=== PATIENT | female | born 1945 | race Caucasian/White ===

== ENCOUNTER 2017-02-13 10:12 | Inpatient (IN) | payer OTHER, MEDICARE ==
[2017-01-29 10:03] LABS: % IMMATURE GRANULYOCYTES 0.2 % (0.0-1.1); ABSOLUTE IMMATURE GRANULOCYTES 0.01 10^3/uL (0.00-0.10); ADD DIFF? NO; ADD MORPH? NO; ADD SCAN? NO; ATYPICAL LYMPHOCYTE FLAG 10 (0-99); FRAGMENT RBC FLAG 0 (0-99); HEMATOCRIT 40.1 % (38.0-47.0); HEMOGLOBIN 13.5 g/dL (12.6-16.3); LEFT SHIFT FLG 0 (0-99); LIPEMIA HEMOLYSIS FLAG 80 (0-99); MEAN CELL HEMOGLOBIN 32.3 pg (27.9-34.1); MEAN CELL HEMOGLOBIN CONCENTR. 33.7 g/dL (32.4-36.7); MEAN CELL VOLUME 95.9 fL (81.5-99.8); MEAN PLATELET VOLUME 10.1 fL (8.7-11.7); PLATELET CLUMPS FLAG 0 (0-99); PLATELET COUNT 258 10^3/uL (150-400); RED BLOOD CELL COUNT 4.18 10^6/uL (4.18-5.33); RED CELL DISTRIBUTION WIDTH 13.4 % (11.5-15.2)
[~2017-02-13 10:12] MED LIST: ACETAMINOPHEN 325 MG TAB PO ONE; CEFAZOLIN 2 GM/DEXTR 100 ML IV ONE; CHLORHEXIDINE GLUC HIBICLENS 118 ML BTL TP ONE; DEXAMETHASONE 4 MG/ML VIAL IVP ONE; FAMOTIDINE 20 MG TAB PO ONE; ROPI/epiNEPH/KETOROLAC JOINT COCKTAIL IU ONE; TRANEXAMIC ACID 3,000 MG in NS 50 ML IRR ONE; TRANEXAMIC ACID 3,000 MG/50 ML BAG IRR ONE; VANCOMYCIN 1 GM VIAL ONE
[2017-02-13] MEDS ORDERED: ACETAMINOPHEN 325 MG TAB ONE (11:11)
[2017-02-13] MEDS ORDERED: DEXAMETHASONE 4 MG/ML VIAL ONE ×2 (11:11→12:36)
[2017-02-13] MEDS ORDERED: FAMOTIDINE 20 MG TAB ONE (11:11)
[2017-02-13] MEDS ORDERED: CEFAZOLIN 2 GM/DEXTROSE/100 ML BAG IV ONE (11:11)
[2017-02-13] MEDS ORDERED: LIDOCAINE 1% 2 ML INJ ONE (11:23)
[2017-02-13] MEDS ORDERED: fentaNYL 100 MCG/2 ML INJ ONE (12:07)
[2017-02-13] MEDS ORDERED: PROPOFOL/EMULSION 500 MG/50 ML BOTTLE IV ONE (12:07)
[2017-02-13] MEDS ORDERED: epHEDrine SULFATE 10 MG/ML SYR ONE (12:35)
[2017-02-13] MEDS ORDERED: ONDANSETRON 4 MG/2 ML VIAL ONE (12:36)
[2017-02-13] MEDS ORDERED: ROPIVACAINE HCL 150 MG/30 ML INJ ONE (12:48)
[2017-02-13] MEDS ORDERED: GLYCOPYRROLATE 0.2 MG/1 ML VIAL ONE (13:00)
[2017-02-13] MEDS ORDERED: PHENYLEPHRINE HCL 100 MCG/ML SYR ONE (13:10)
[2017-02-13] MEDS ORDERED: PROPOFOL 200 MG/20 ML VIAL ONE (13:15)
[2017-02-13] MEDS ORDERED: METOCLOPRAMIDE 10 MG/2 ML VIAL IVP PRN (13:33)
[2017-02-13] MEDS ORDERED: PROMETHAZINE HCL 25 MG SUPPR PR PRN (13:33)
[2017-02-13] MEDS ORDERED: POLYETHYLENE GLYCOL 3350 17 GM PKT PO PRN (13:33)
[2017-02-13] MEDS ORDERED: ONDANSETRON 4 MG/2 ML VIAL IVP PRN (13:33)
[2017-02-13] MEDS ORDERED: TEMAZEPAM 15 MG CAP PO PRN (13:33)
[2017-02-13] MEDS ORDERED: BISACODYL 10 MG SUPP PR PRN (13:33)
[2017-02-13] MEDS ORDERED: PHARMACY PAIN CONSULT 1 EA MISC PRN (13:33)
[2017-02-13] MEDS ORDERED: DIPHENOXYLATE/ATROPINE LOMOTIL 1 TAB PO PRN (13:33)
[2017-02-13] MEDS ORDERED: diphenhydrAMINE 25 MG CAP PO PRN (13:33)
[2017-02-13] MEDS ORDERED: MAGNESIUM HYDROXIDE 30 ML UDCUP PO PRN (13:33)
[2017-02-13] MEDS ORDERED: PROMETHAZINE HCL 25 MG/ML INJ IVP PRN (13:33)
[2017-02-13] MEDS ORDERED: LACTULOSE 20 GM/30 ML UDCUP PO PRN (13:33)
--- NOTE | 2017-02-13 13:33 | POSTOPPROG ---
Post Op Note Date of Operation: 02/13/17 Surgeon: Rona Rm Lead Slot Technician: jelani rm Anesthesiologist: dr. hernandez Anesthesia: Spinal, Other (Specify) (adductor canal block) Pre-op Diagnosis: left knee OA Post-op Diagnosis: same Indication: left knee pain due to OA that failed conservative measure Procedure: L TKA Findings: severe knee OA Inf/Abcess present in the surg proc area at time of surgery?: No EBL: 50-100
[2017-02-13] MEDS ORDERED: LR 1,000 ML IV SCH (14:00)
[2017-02-13] MEDS: ACETAMINOPHEN 325 MG TAB PO SCH (17:08)
[2017-02-13] MEDS: CYCLOBENZAPRINE 10 MG TAB PO PRN (17:08)
[2017-02-13] MEDS: ceFAZolin 2 GM/DEXTROSE 100 ML IV SCH (17:09)
--- NOTE | 2017-02-13 17:17 | GOP ---
[f rep st] OPERATIVE REPORT DATE OF OPERATION: 02/13/2017 SURGEON: David Herrera MD PROFILE STITCHING MACHINE OPERATOR: Katrina Herrera PA-C. ANESTHESIA: Spinal. PREOPERATIVE DIAGNOSIS: Left knee osteoarthritis. POSTOPERATIVE DIAGNOSIS: Left knee osteoarthritis. PROCEDURE PERFORMED: Left total knee arthroplasty. FINDINGS: ESTIMATED BLOOD LOSS: 30 cc. INDICATIONS: This is a 71-year-old female with severe and progressive pain and deformity of the lef t knee unresponsive to conservative care. Risks and benefits of the surgical intervention were expl ained in detail. DESCRIPTION OF PROCEDURE: The patient was brought to the operative room and placed on the table in the supine position. Spinal anesthesia was induced without difficulty. A pneumatic tourniquet was applied about the left proximal thigh, and the leg was prepped and draped in a sterile fashion. The leg vidales was applied. After exsanguination by elevation the tourniquet was inflated to 250 mm of mercury. Incision was made anterior medial from the tibial tuberosity to a point 2 cm proximal to the superio r pole of the patella. Medial parapatellar arthrotomy was carried out from the superior pole of the patella and posteriorly in line with the fibers of the Type 2 VMO. The medial collateral ligament was elevated and the infrapatellar fat pad was resected. The patella was everted and the articular surface was excised. A 35 mm patellar button was placed. The distal femoral guide hole was drilled and the 6-degree alignment kane was placed. An 8 mm distal femoral cut was made without difficulty. Attention was turned to the tibia and a standard 9 mm cut based on the lateral tibial condyle was pe rformed. The tibial articular surface was excised without difficulty. Attention was turned back to the femur and a size 4 Triathlon femoral cutting block was positioned. Anterior, posterior, and chamfer cuts were made, followed by the intercondylar box cut. The knee was extended and the remnants of the medial and lateral meniscus were excised. The posteri or capsule was injected with ropivacaine, epinephrine and Toradol. A size 4 MIS mini-keel tibial tr ay was positioned. Trial reduction was then carried out. There was excellent range of motion, alig nment, and stability using the 13 mm polyethylene. All trials were then removed. The joint was thoroughly irrigated and carefully dried. Two packages of cement and 2 grams of vancomycin were mixed in the vacuum mixer and placed on the fixation surfa cate of all surfaces of the components. The components were implanted and all excess cement was thor oughly removed. The permanent 13 mm polyethylene was placed without difficulty. The tourniquet was deflated and all bleeders were coagulated. The wound was thoroughly irrigated an d closed using interrupted sutures of 2-0 Vicryl for the joint capsule. The subcu was closed with 3 -0 Vicryl and the skin with 4-0 Monocryl. Dermabond and Steri-Strips were applied followed by a com pressive dressing. The patient was then moved from the operating room to the recovery room in good condition, having tolerated the procedure well. PATHOLOGY: Severe medial and patellofemoral osteoarthritis. /[id number]/MODL
[2017-02-13] MEDS: ONDANSETRON DISINTEGRATING 4 MG TAB PO PRN ×2 (18:14→21:32)
[2017-02-13] MEDS: oxyCODONE IR 5 MG TAB PO PRN ×2 (18:35→21:58)
[2017-02-13] MEDS: ASPIRIN 325 MG TAB PO SCH (20:27)
[2017-02-13] MEDS: FAMOTIDINE 20 MG TAB PO SCH (20:27)
[2017-02-13] MEDS: SENNOSIDES/DOCUSATE SODIUM TAB PO SCH (20:27)
[2017-02-14] MEDS: ACETAMINOPHEN 325 MG TAB PO SCH ×3 (00:56→10:41)
[2017-02-14] MEDS: oxyCODONE IR 5 MG TAB PO PRN ×4 (00:57→10:41)
[2017-02-14] MEDS: ceFAZolin 2 GM/DEXTROSE 100 ML IV SCH (00:58)
[2017-02-14] MEDS: ONDANSETRON DISINTEGRATING 4 MG TAB PO PRN (03:32)
[2017-02-14 04:52] LABS: HEMATOCRIT 33.6 % (38.0-47.0); HEMOGLOBIN 11.4 g/dL (12.6-16.3)
[2017-02-14 07:33] VITALS: BP 121/62; PULSE 54; RESP 14; TEMP 97.4; O2SAT 96
[2017-02-14] MEDS: SENNOSIDES/DOCUSATE SODIUM TAB PO SCH (08:38)
[2017-02-14] MEDS: ASPIRIN 325 MG TAB PO SCH (08:38)
[2017-02-14] MEDS: CYCLOBENZAPRINE 10 MG TAB PO PRN (08:38)
[2017-02-14] MEDS: FAMOTIDINE 20 MG TAB PO SCH (08:38)
== END 2017-02-14 12:12 | disposition home or self-care (01) | DRG 470 ==
LOC: F3N 10:12
PROVIDERS: ADMIT Orthopaedic Surgery; ATTEND Orthopaedic Surgery
PROC: 0SRD0J9 Replacement of Left Knee Joint with Synthetic Substitute, Cemented, Open Approach (ICD-10-PCS; principal; 2017-02-13 12:00)
DX: M17.12 Unilateral primary osteoarthritis, left knee (principal)
CPT/HCPCS: 97110-GP; 97116-GP; 97161-GP; 97165-GO; 97530-GP; C1713; G8978-GP-CJ; G8979-GP-CI; G8980-GP-CI; G8987-GO-CI; G8988-GO-CI; G8989-GO-CI; J0171; J0690; J1100; J1885; J2370; J2405; J2704; J2795; J3010; J3370

== ENCOUNTER → 2017-07-29 | Outpatient (CLI) | payer OTHER, MEDICARE | LOC: FIMAGING 09:14 | PROVIDERS: ATTEND Family Medicine | DX: Z12.31 Encounter for screening mammogram for malignant neoplasm of breast (principal) | CPT/HCPCS: G0202 ==

== ENCOUNTER → 2018-01-15 | Outpatient (CLI) | payer OTHER, MEDICARE | LOC: FIMAGING 10:52 | PROVIDERS: ATTEND Orthopaedic Surgery | DX: M17.11 Unilateral primary osteoarthritis, right knee (principal); M25.461 Effusion, right knee ==

== ENCOUNTER 2018-01-21 07:11 | Observation (INO) | payer OTHER, MEDICARE ==
[~2018-01-21 07:11] MED LIST changes: -ACETAMINOPHEN 325 MG TAB PO ONE; -CEFAZOLIN 2 GM/DEXTR 100 ML IV ONE; -CHLORHEXIDINE GLUC HIBICLENS 118 ML BTL TP ONE; -DEXAMETHASONE 4 MG/ML VIAL IVP ONE; -FAMOTIDINE 20 MG TAB PO ONE; -ROPI/epiNEPH/KETOROLAC JOINT COCKTAIL IU ONE; +ROPIVACAINE 0.2% 80 MG, EPINEPHrine 0.2 MG, KETOROLAC TROMETHAMINE 30 MG in SYRINGE 0 ML IU ONE; +TRANEXAMIC ACID 3,000 MG in NS (SYRINGE) 50 ML IRR ONE; -TRANEXAMIC ACID 3,000 MG in NS 50 ML IRR ONE; -TRANEXAMIC ACID 3,000 MG/50 ML BAG IRR ONE; -VANCOMYCIN 1 GM VIAL ONE
--- NOTE | 2018-01-21 07:12 | PDHPUP ---
History & Physical Update H&P update statement: This history and physical update is based on an assessment of the patient which was completed after admission or registration (within 24 hours), but prior to the surgery/procedure. H&P update: H&P reviewed & patient examined, no change in patient's condition since H&P completed
[2018-01-21] MEDS ORDERED: FAMOTIDINE 20 MG TAB PO ONE (07:39)
[2018-01-21] MEDS ORDERED: ceFAZolin 2 GM/SWFI 2 GM/20 ML SYR IVP ONE (07:39)
[2018-01-21] MEDS ORDERED: ACETAMINOPHEN 325 MG TAB PO ONE (07:39)
[2018-01-21] MEDS ORDERED: DEXAMETHASONE 4 MG/ML VIAL IVP ONE (07:39)
[2018-01-21] MEDS ORDERED: LIDOCAINE 1% 2 ML INJ ID PRN (07:40)
[2018-01-21] MEDS ORDERED: LR 1,000 ML IV ONE (07:40)
[2018-01-21] MEDS ORDERED: TRANEXAMIC ACID 3,000 MG/50 ML BAG IRR ONE (07:42)
--- NOTE | 2018-01-21 09:32 | PDANEPAE ---
ANE History of Present Illness R knee OA ANE Past Medical History - Cardiovascular History Hx Hypertension: No Hx Arrhythmias: No Hx Chest Pain: No Hx Coronary Artery / Peripheral Vascular Disease: No Hx CHF / Valvular Disease: No Hx Palpitations: No - Pulmonary History Hx COPD: No Hx Asthma/Reactive Airway Disease: No Hx Recent Upper Respiratory Infection: No Hx Oxygen in Use at Home: No Hx Sleep Apnea: No Sleep Apnea Screening Result - Last Documented: Negative Pulmonary History Comment: hx of sarcoidosis with pulm nodule 2007- seen at [facility] STABLE - Neurologic History Hx Cerebrovascular Accident: No Hx Seizures: No Hx Dementia: No - Endocrine History Hx Diabetes: No Hypothyroid: No Hyperthyroid: No Obesity: no - Renal History Hx Renal Disorders: No - Liver History Hx Hepatic Disorders: No - Neurological & Psychiatric Hx Hx Neurological and Psychiatric Disorders: No - Cancer History Hx Cancer: Yes Cancer History Comment: skin ca-BASAL CELL FACE - Congenital Disorder History Hx Congenital Disorders: No - GI History GERD: no Hx Gastrointestinal Disorders: Yes Gastrointestinal History Comment: hx partial colectomy - Other Health History Other Health History: OA -R KNEE;. wears glasses/ contacts. red head- sensitive skin - Chronic Pain History Chronic Pain: Yes (R KNEE) - Surgical History Prior Surgeries: L TOTAL KNEE 02-13-17. partial colectomy 1985. knee scopes bilaterally. tonsillectomy ANE Review of Systems Review of Systems: - Exercise capacity METS (RN): 5 METS - Systems Muscolosketal: Reports: joint pain ANE Patient History - Allergies Allergies/Adverse Reactions: No Known Allergies Allergy (Verified 01/07/18 12:00) - Home Medications Home Medications: C/E/Zn/Cu/OM3/DHA/EPA/LUT/ZEAX [Preservision Areds 2 Softgel] 1 each PO DAILY [Last Taken 2 Weeks Ago ~01/07/18] Herbals/Supplements -Info Only 1 ea PO DAILY 01/14/17 [Last Taken 2 Weeks Ago ~ 01/07/18] Calcium Carbonate [Oyster Shell Calcium 500 mg (*)] 1,000 mg PO DAILY 01/06/18 [ Last Taken 2 Weeks Ago ~01/07/18] - NPO status NPO Since - Liquids (Date): 01/21/18 NPO Since - Liquids (Time): 05:15 NPO Since - Solids (Date): 01/20/18 NPO Since - Solids (Time): 20:15 - Anes Hx Anes Hx: no prior problems - Smoking Hx Smoking Status: Never smoked Marijuana use: No - Alcohol Use Alcohol Use: Rarely - Family Anes Hx Family Anes Hx: neg - N/A Family Hx Anesthesia Complications: none ANE Labs/Vital Signs - Vital Signs Blood Pressure: 148/87 Heart Rate: 58 Respiratory Rate: 18 O2 Sat (%): 96 Height: 170.18 cm Weight: 61.235 kg ANE Physical Exam - Airway Neck exam: FROM Mallampati Score: Class 2 Mouth exam: normal dental/mouth exam - Pulmonary Pulmonary: no respiratory distress, no rales or rhonchi, clear to auscultation - Cardiovascular Cardiovascular: regular rate and rhythym, no murmur, rub, or gallop ANE Anesthesia Plan Anesthesia Plan: MAC, spinal Total IV Anesthesia: No
[2018-01-21] MEDS ORDERED: MIDAZOLAM 2 MG/2 ML VIAL IVP ONE (09:35)
[2018-01-21] MEDS ORDERED: fentaNYL 100 MCG/2 ML INJ ONE (09:45)
[2018-01-21] MEDS ORDERED: PROPOFOL/EMULSION 500 MG/50 ML BOTTLE IV ONE (09:45)
[2018-01-21] MEDS ORDERED: PROMETHAZINE HCL 25 MG/ML INJ IVP PRN ×2 (10:07→10:10)
[2018-01-21] MEDS ORDERED: PHENYLEPHRINE HCL 100 MCG/ML SYR IVP PRN (10:07)
[2018-01-21] MEDS ORDERED: ONDANSETRON 4 MG/2 ML VIAL IVP PRN ×2 (10:07→10:10)
[2018-01-21] MEDS ORDERED: LR 500 ML IV PRN (10:07)
[2018-01-21] MEDS ORDERED: HYDROCODONE/APAP 5/325 TAB PO PRN (10:07)
[2018-01-21] MEDS ORDERED: ACETAMINOPHEN 500 MG TAB PO PRN (10:07)
[2018-01-21] MEDS ORDERED: fentaNYL 100 MCG/2 ML INJ IVP PRN (10:07)
[2018-01-21] MEDS ORDERED: epHEDrine SULFATE 10 MG/ML SYR IVP PRN (10:07)
[2018-01-21] MEDS ORDERED: NALOXONE HCL 0.4 MG/ML INJ IVP PRN (10:07)
[2018-01-21] MEDS ORDERED: diphenhydrAMINE 25 MG CAP PO PRN (10:10)
[2018-01-21] MEDS ORDERED: POLYETHYLENE GLYCOL 3350 17 GM PKT PO PRN (10:10)
[2018-01-21] MEDS ORDERED: ONDANSETRON DISINTEGRATING 4 MG TAB PO PRN (10:10)
[2018-01-21] MEDS ORDERED: BISACODYL 10 MG SUPP PR PRN (10:10)
[2018-01-21] MEDS ORDERED: PROMETHAZINE HCL 25 MG SUPPR PR PRN (10:10)
[2018-01-21] MEDS ORDERED: DIPHENOXYLATE/ATROPINE LOMOTIL 1 TAB PO PRN (10:10)
[2018-01-21] MEDS ORDERED: LACTULOSE 20 GM/30 ML UDCUP PO PRN (10:10)
[2018-01-21] MEDS ORDERED: TEMAZEPAM 15 MG CAP PO PRN (10:10)
[2018-01-21] MEDS ORDERED: oxyCODONE IR 5 MG TAB PO PRN (10:10)
[2018-01-21] MEDS ORDERED: METOCLOPRAMIDE 10 MG/2 ML VIAL IVP PRN (10:10)
[2018-01-21] MEDS ORDERED: MAGNESIUM HYDROXIDE 30 ML UDCUP PO PRN (10:10)
[2018-01-21] MEDS ORDERED: LR 1,000 ML IV SCH (10:30)
[2018-01-21] MEDS ORDERED: VANCOMYCIN 1 GM VIAL ONE (10:38)
[2018-01-21] MEDS ORDERED: ROPIVACAINE HCL 150 MG/30 ML INJ ONE (10:50)
--- NOTE | 2018-01-21 11:12 | POSTOPPROG ---
Post Op Note Date of Operation: 01/21/18 Surgeon: Rona Rm [employer] Professor: jelani mr Anesthesiologist: dr. pinto Anesthesia: Spinal, Other (Specify) (adductor canal block) Pre-op Diagnosis: right knee OA Post-op Diagnosis: same Indication: knee pain Procedure: R TKA robot assisted and computer navigation Findings: R knee severe OA Inf/Abcess present in the surg proc area at time of surgery?: No EBL: 50-100
--- NOTE | 2018-01-21 12:50 | POSTANESTH ---
Post Anesthetic Evaluation Cardiovascular Status: Normal, Stable Respiratory Status: Normal, Stable Level of Consciousness/Mental Status: Can Participate in Eval Pain Control: Adequate, Prn Tx Ordered Nausea/Vomiting Control: Adequate, Prn Tx Ordered Complications Possibly Related to Anesthesia: None Noted
--- NOTE | 2018-01-21 13:51 | GOP ---
[f rep st] OPERATIVE REPORT DATE OF OPERATION: 01/21/2018 SURGEON: David Herrera MD BIOINFORMATICS ANALYST: RHYS Hurtado. ANESTHESIA: Spinal. PREOPERATIVE DIAGNOSIS: Right knee osteoarthrosis. POSTOPERATIVE DIAGNOSIS: Right knee osteoarthrosis. PROCEDURE PERFORMED: Right total knee replacement with computer navigation, robotic assist. FINDINGS: ESTIMATED BLOOD LOSS: 30 mL. INDICATIONS: The patient is a 72-year-old female with severe and progressive pain and deformity of t he right knee unresponsive to conservative care. The risks and benefits of surgical intervention wer e explained in detail. DESCRIPTION OF PROCEDURE: The patient was brought to the operative room and placed on the table in t he supine position. Spinal anesthesia was induced without difficulty. A pneumatic tourniquet was appl ied about the right proximal thigh, and the leg was prepped and draped in a sterile fashion. The leg vidales was applied. After exsanguination by elevation the tourniquet was inflated to 250 mmHg. Incision was made anterior medial from the tibial tuberosity to a point 2 cm proximal to the superior pole of the patella. Medial parapatellar arthrotomy was carried out from the superior pole of the p atella and posteriorly in line with the fibers of the Type II VMO. The medial collateral ligament was elevated and the infrapatellar fat pad was resected. The patella was everted and the articular surface was excised. A 35 mm patellar button was placed. Attention was turned first to the distal aspect of the femur. After exposure of the femur, 2 half pi ns were placed for fixation of the femoral array. In a similar fashion, 2 pins were placed anteromed ial on the tibia for fixation of the tibial array. External land marking and registration of the hip center was performed without difficulty. Internal femoral and tibial registration was carried out w ithout difficulty and the femoral and tibial checkpoints were placed and verified for accuracy. Attention was turned to the femur. The foot print for the size 4 femoral component was cut with the saw using the [employer] robotic system and verified for accuracy against the CT based plan. In a similar f ashion, the saw was used to cut the footprint for the size 4 tibial component using the [employer] system an d verified for accuracy against the CT based plan. The tibial articular surface was excised without d ifficulty, followed by the intercondylar box cut. The knee was extended and the remnants of the medial and lateral meniscus were excised. The posterior capsule was injected with ropivacaine, epinephrine and Toradol. A size 4 tibial tray was positioned . Trial reduction was then carried out. There was excellent range of motion, alignment, and stability using the 4 x 11 mm polyethylene. All trials were then removed. The joint was thoroughly irrigated and carefully dried. The 4 x 11 poly ethylene cemented components were implanted. The permanent 11 mm polyethylene X3 was placed without d ifficulty. The tourniquet was deflated and all bleeders were coagulated. The wound was thoroughly irrigated and closed using interrupted sutures of 2-0 Vicryl for the joint capsule. The subcu was closed with 3-0 V icryl and the skin with 4-0 Monocryl. Dermabond and Steri-Strips were applied followed by a compress satish dressing. The patient was then moved from the operating room to the recovery room in good conditi on, having tolerated the procedure well. PATHOLOGY: Medial and patellofemoral osteoarthritis. /[id number]/MODL
[2018-01-21] MEDS: HYDROCODONE/APAP 10/325 TAB PO PRN ×2 (16:26→21:55)
[2018-01-21] MEDS: ceFAZolin 2 GM/DEXTROSE 100 ML IV SCH (18:04)
[2018-01-21] MEDS: SENNOSIDES/DOCUSATE SODIUM TAB PO SCH (20:52)
[2018-01-21] MEDS: CYCLOBENZAPRINE 10 MG TAB PO PRN (20:52)
[2018-01-21] MEDS: FAMOTIDINE 20 MG TAB PO SCH (20:52)
[2018-01-21] MEDS: ASPIRIN 81 MG CHEWABLE TAB PO SCH (20:52)
[2018-01-22] MEDS: ceFAZolin 2 GM/DEXTROSE 100 ML IV SCH (01:57)
[2018-01-22] MEDS: HYDROCODONE/APAP 10/325 TAB PO PRN ×2 (04:13→10:12)
[2018-01-22 07:32] VITALS: BP 139/58
[2018-01-22] MEDS: ASPIRIN 81 MG CHEWABLE TAB PO SCH (07:33)
[2018-01-22] MEDS: SENNOSIDES/DOCUSATE SODIUM TAB PO SCH (07:33)
[2018-01-22] MEDS: FAMOTIDINE 20 MG TAB PO SCH (07:33)
[2018-01-22] MEDS: CYCLOBENZAPRINE 10 MG TAB PO PRN (07:38)
--- NOTE | 2018-01-22 08:48 | SOAPPROG ---
SOAP Progress Note Assessment/Plan: Assessment: Patient is doing well POD 1 s/p R TKA Pain management: pain is well controlled on oral pain meds. VTE ppx: recommend aspirin 81 mg BID for 4 weeks, cont VINITA and SCDs Anemia: level is expected initially postop. Asymptomatic. Continue to monitor D/c planning: d/c to home today pending release from PT muscle spasms: patient had relief with flexeril. will send script today from our EMR Plan: 01/22/18 08:46 01/22/18 08:47 Subjective: patient is doing well, eager for d/c. patient had relief with flexeril. Objective: Vital Signs Temp Pulse Resp BP Pulse Ox 36.7 C 57 L 16 139/58 H 97 01/22/18 07:31 01/22/18 07:31 01/22/18 07:31 01/22/18 07:31 01/22/18 07:31 Laboratory Results 01/22/18 05:10 01/21/18 01/22/18 01/23/18 05:59 05:59 05:59 Intake Total 2680 Output Total 1115 Balance 1565 RLE: incision dressing is clean and dry, NVI, +pf/df ICD10 Worksheet Patient Problems: Problems Problem Status Onset Primary localized osteoarthritis of right knee Acute
--- NOTE | 2018-01-22 13:42 | GDS ---
[f rep st] DISCHARGE SUMMARY ADMISSION DIAGNOSIS: Right knee osteoarthritis. DISCHARGE DIAGNOSIS: Right knee osteoarthritis. PROCEDURE: Right total knee arthroplasty. VTE PROPHYLAXIS: Recommend aspirin 81 mg twice a day for 4 weeks. BRIEF DESCRIPTION OF HOSPITAL STAY: Patient was admitted for an elective joint arthroplasty. The pa sam tolerated the procedure well and has passed physical therapy. The patient was given appropriat e antibiotic prophylaxis and venous thromboembolism prophylaxis. The patient's pain was well control led on oral pain medication, patient was holding down food, and had urinated. Decision was made to d ischarge the patient. The patient was given post-operative prescriptions pre-operatively. PLAN: To follow up as scheduled in Dr. Herrera's office on February 12 at 3:30. /[id number]/MODL
== END 2018-01-22 12:02 | disposition home or self-care (01) ==
LOC: F3N 07:11
PROVIDERS: ADMIT Orthopaedic Surgery; ATTEND Orthopaedic Surgery
DX: M17.11 Unilateral primary osteoarthritis, right knee (principal)
CPT/HCPCS: 27447; 73560; 88311; 97116; 97161; C1713; C1776; G8978; G8979; G8980; J0171; J0690; J1100; J1885; J2250; J2704; J2795; J3010; J3370; J2370

== ENCOUNTER → 2019-03-04 | Outpatient (CLI) | payer OTHER, MEDICARE | LOC: FIMAGING 09:19 ==